=== PATIENT | female | born 1975 | race Two or more races ===

== ENCOUNTER 2018-06-09 07:28 | Emergency (ER) | payer MEDICAID ==
[2018-06-09 07:35] VITALS: BP 137/95
[2018-06-09] MEDS ORDERED: CHLORDIAZEPOXIDE 25MG PREPK#6 BTL TAKEHOME ONE (07:51)
--- NOTE | 2018-06-09 07:51 | EDPHY ---
H & P Stated Complaint: Heroin withdrawal Time Seen by Provider: 06/09/18 07:39 HPI/ROS: CHIEF COMPLAINT: Referred to the emergency department by [facility] for Librium starter pack HISTORY OF PRESENT ILLNESS: The patient is a 1 g a day heroin user who is referred to the emergency department by the [facility] for a Librium starter pack. The patient has tried Suboxone unsuccessfully as an outpatient. She has difficulty with the compliance required of the outpatient program. The patient does have a history of hypertension, anxiety and depression which she takes medications for. The patient has no complaints of chest pain or shortness of breath. She denies fever, cough or congestion. She denies additional acute medical complaints. REVIEW OF SYSTEMS: A comprehensive 10 point review of systems is otherwise negative aside from elements mentioned in the history of present illness. Source: Patient - Personal History LMP (Females 10-55): 1-7 Days Ago Current Tetanus Diphtheria and Acellular Pertussis (TDAP): Yes - Medical/Surgical History Hx Asthma: No Hx Chronic Respiratory Disease: No Hx Diabetes: No Hx Cardiac Disease: No Hx Renal Disease: No Hx Cirrhosis: No Hx Alcoholism: No Hx HIV/AIDS: No Hx Splenectomy or Spleen Trauma: No Other PMH: Anxiety. HTN. - Social History Smoking Status: Current every day smoker - Physical Exam Exam: General Appearance: Alert, no distress Eyes: Pupils equal and round no pallor or injection ENT, Mouth: Mucous membranes moist Respiratory: There are no retractions, lungs are clear to auscultation Cardiovascular: Regular rate and rhythm Gastrointestinal: Abdomen is soft and nontender, no masses, bowel sounds normal Neurological: A&O, normal motor function, normal sensory exam, normal cranial nerves Skin: Warm and dry, no rashes Musculoskeletal: Neck is supple nontender Extremities: symmetrical, full range of motion Constitutional: Initial Vital Signs Temperature (C) 37.1 C 06/09/18 07:32 Heart Rate 110 H 06/09/18 07:32 Respiratory Rate 18 06/09/18 07:32 Blood Pressure 137/95 H 06/09/18 07:32 O2 Sat (%) 96 06/09/18 07:32 O2 Delivery Mode Room Air Allergies/Adverse Reactions: No Known Allergies Allergy (Unverified 06/09/18 07:35) Home Medications: Medication Instructions Recorded Lisinopril 10/12/18 Naloxone HCl [Narcan] 4 mg NS ONCE PRN #1 spray 06/09/18 Medical Decision Making ED Course/Re-evaluation: The patient will be given a Librium prepack and referred back to the [facility]. She is also discharged home with a Narcan prescription. Departure - Departure Disposition: Home, Routine, Self-Care Clinical Impression: Narcotic dependence Condition: Good Instructions: Narcotic Abuse (ED) Additional Instructions: 1. Please go to the [facility] for further assistance with your narcotic dependence and withdrawal symptoms. 2. You have been given a prescription for a Narcan nasal medication. The [facility] can provide you information on where this prescription can be filled for free. Referrals: Y[facility] MOROCHO [Other] - As per Instructions [facility] [Outside] - As per Instructions
== END 2018-06-09 08:16 | disposition home or self-care (01) ==
DX: F11.23 Opioid dependence with withdrawal (principal); F41.9 Anxiety disorder, unspecified; I10 Essential (primary) hypertension; Z72.0 Tobacco use